=== PATIENT | female | born 1970 | race African-American/Black ===

== ENCOUNTER 2016-08-25 10:09 | Emergency (ER) | payer OTHER ==
--- NOTE | ~2016-08-25 | CR63 ---
[facility] A Service of [facility] & [facility] RADIOLOGY TEXT RESULTS PATIENT: ADRIANA GRAF LOCATION: [facility] : 72 UNIT #: [id number] AGE: [address]: Lindsay Hale SEX: F ORDER DR: [id number] [facility] [address] [place], [place] [address] [id number] E MR#: [id number] Acc #: [id number] NAME: ADRIANA GRAF : 1970 SEX: F STUDY DATE/TIME: 08/25/2016 10:34 UNIT: [facility] ROOM: STUDY DESCRIPTION: CR Chest 2 View Attending Physician: Lindsay Hale P.A.-C. Ordering Physician: Lindsay Hale P.A.-C. Primary Care Physician: [facility] MEDICAL IMAGING REPORT This report is preliminary unless electronic signature is present EXAM Two-view chest, 08/25/2016 INDICATIONS Cough, short of air, sore throat for 3 days, tobacco abuse for years. TECHNIQUE 2 views of the chest were performed and compared with 12/19/2015. FINDINGS Cardiac silhouette is borderline in size and stable. Vascularity unremarkable. There is no dense consolidation, effusion or pneumothorax. Lateral view degraded by body habitus but otherwise unremarkable. Minimal thoracic spondylosis. IMPRESSION 1. Borderline to mild cardiomegaly, otherwise negative two-view chest. Dictated by... Robin Ellis M.D. THIS IS AN ELECTRONICALLY VERIFIED REPORT Robin Ellis M.D. at 08/26/2016 7:28 AM TRAVIS/daniel TD: 08/25/2016 16:42 JOB #: [id number] MEDICAL IMAGING REPORT COPY
[~2016-08-25 10:09] MED LIST: FLEXERIL10 M1 PO; LORTAB 5/500 TA1 TA1 PO; MEDROL4 MG/DOSE- PO; NAPROXEN PO; ORUDIS75 M1 DOB; PREDNISONE PO; TYLENOL #3 PO; VOLTAREN75 MG PO
== END 2016-08-25 10:56 | disposition home or self-care (01) ==
LOC: CFTX 10:09
DX: J20.5 Acute bronchitis due to respiratory syncytial virus (principal); I10 Essential (primary) hypertension; F17.210 Nicotine dependence, cigarettes, uncomplicated; Z98.51 Tubal ligation status
CPT/HCPCS: 71020; 87651; 94640; 99283

== ENCOUNTER 2016-11-19 12:56 | Emergency (ER) | payer OTHER ==
--- NOTE | ~2016-11-19 | EKG ---
PATIENT: ADRIANA GRAF UNIT #: [id number] Ventricular Rate: 70 BPM Atrial Rate: 70 BPM P-R Interval: 172 ms QRS Duration: 104 ms Q-T Interval: 416 ms QTC Calculation(Bezet): 449 ms P [place]: 51 degrees Calculated R [place]: 9 degrees Calculated T [place]: 11 degrees Diagnosis Line: Normal sinus rhythm Diagnosis Line: Nonspecific ST and T wave abnormality Diagnosis Line: Abnormal ECG Diagnosis Line: Diagnosis Line: Confirmed by MOISÉS CHI MD ([id number]) on Diagnosis Line: 11/19/2016 10:21:56 PM INTERPRETING MD: QUIRINO
[2016-11-19 14:59] LABS: URINE SOURCE CLEAN CATCH
[2016-11-19 15:03] LABS: URINE APPEARANCE CLEAR; URINE BILIRUBIN NEG (NEG); URINE BLOOD TRACE (NEG); URINE COLOR YELLOW; URINE GLUCOSE NEG (NEG); URINE KETONE NEG (NEG); URINE LEUKOCYTE ESTERASE NEG (NEG); URINE NITRATE NEG (NEG); URINE PROTEIN NEG (NEG); URINE SPECIFIC GRAVITY 1.018 (1.003-1.035); URINE UROBILINOGEN 0.2 MG/DL (NEG)
[2016-11-19 15:05] LABS: URBCS1 AUWI 0-2 /[HPF] (0-2); URINE BACTERIA AUWI NEG (NEGATIVE); URINE SQUAMOUS EPITHELIAL CELL OCC /[HPF]; UWBCS1 AUWI 0-2 (0-5)
[2016-11-19 15:13] LABS: CULTURE INDICATED? NO
[2016-11-19 15:29] LABS: BASOPHIL# 0.1 X10e3 (0-0.3); BASOPHIL% 1.3 % (0-2.5); EOSINOPHIL# 0.3 X10e3 (0-0.7); EOSINOPHIL% 3.5 % (0.0-7.0); HEMATOCRIT 41.5 % (35.0-45.0); HEMOGLOBIN 13.1 gm/dL (12.0-16.0); LYMPHOCYTE# 2.3 X10e3 (1.0-3.5); LYMPHOCYTE% 28.7 % (17.0-45.0); MEAN CELL VOLUME 86.1 FL (83-96); MEAN CORPUSCULAR HEMOGLOBIN 27.2 PG (28-34); MEAN CORPUSCULAR HGB CONC 31.6 g/dL (30-36); MEAN PLATELET VOLUME 9.4 FL (6.5-11.5); MONOCYTE# 0.6 X10e3 (0-1.0); MONOCYTE% 7.3 % (3.0-12.0); NEUTROPHIL# 4.9 X10e3 (1.5-7.1); NEUTROPHIL% 59.2 % (40-75); PLATELET COUNT 271 X10e3 (140-420); RED BLOOD COUNT 4.82 X10e (3.90-5.30); RED CELL DISTRIBUTION WIDTH 14.6 % (11.0-15.5); WHITE BLOOD COUNT 8.2 X10e3 (4.0-10.5)
[2016-11-19 15:35] LABS: DIFF IND NO
[2016-11-19 15:59] LABS: ALBUMIN SERUM 4.3 g/dL (3.5-5.0); BILIRUBIN, DIRECT 0.1 mg/dL (0.0-0.2); BILIRUBIN,INDIRECT 0.6 mg/dL (0.0-0.9); BILIRUBIN,TOTAL 0.7 mg/dL (0.2-2.0); BUN/CREATININE RATIO 13.33; CALCIUM SERUM 10.7 mg/dL (8.4-10.2); CREATININE SERUM 0.9 mg/dL (0.6-1.4); GLOM FILT RATE Estimated 89.6 mL/min (>60); PROTEIN TOTAL SERUM 8.1 g/dL (6.0-8.3)
[2016-11-19 16:00] LABS: POTASSIUM 3.1 mmol/L (3.5-5.1)
== END 2016-11-19 17:04 | disposition home or self-care (01) ==
LOC: CED 12:56
PROVIDERS: Emergency Medicine
DX: E87.6 Hypokalemia (principal); R42 Dizziness and giddiness; I10 Essential (primary) hypertension; F17.200 Nicotine dependence, unspecified, uncomplicated; Z98.51 Tubal ligation status
CPT/HCPCS: 36415; 80048; 80076; 81003; 82947; 85025; 93005; 96361; 96374; 99284; J2405

== ENCOUNTER 2017-02-18 17:10 | Emergency (ER) | payer OTHER ==
[~2017-02-18] VITALS: Ht 162.6 cm; Wt 99.8 kg
--- NOTE | ~2017-02-18 | CR21 ---
[facility] A Service of [facility] & [facility] RADIOLOGY TEXT RESULTS PATIENT: ADRIANA GRAF LOCATION: [facility] : 72 UNIT #: [id number] AGE: [address]: Sunshine Solis SEX: F ORDER DR: [id number] [facility] [address] [place], [place] [address] [id number] E MR#: [id number] Acc #: [id number] NAME: ADRIANA GRAF : 1970 SEX: F STUDY DATE/TIME: 02/18/2017 18:01 UNIT: [facility] ROOM: STUDY DESCRIPTION: CR Ankle Min 3 Views Rt Attending Physician: Sunshine Solis Pa-C Ordering Physician: Ed Bravo Allred M.D. Primary Care Physician: No Primary Care Physician MEDICAL IMAGING REPORT This report is preliminary unless electronic signature is present EXAM Right ankle 3 views 02/18/2017 HISTORY Right ankle pain and edema for 5 days status post fall. FINDINGS AP, lateral, and oblique projections of the ankle show satisfactory integrity of the joint mortise with a smooth articular surface. There is no identifiable fracture, dislocation, or radiopaque foreign body. IMPRESSION Normal ankle. Dictated by... Corbin Paul M.D. THIS IS AN ELECTRONICALLY VERIFIED REPORT Corbin Paul M.D. at 02/21/2017 7:46 AM KRT/renée TD: 02/19/2017 07:59 JOB #: [id number] MEDICAL IMAGING REPORT Page 1 of 1 COPY
[2017-02-18 18:05] LABS: URINE SOURCE CLEAN CATCH
[2017-02-18 18:26] LABS: URINE APPEARANCE CLEAR; URINE BILIRUBIN NEG (NEG); URINE BLOOD NEG (NEG); URINE COLOR YELLOW; URINE GLUCOSE NEG (NEG); URINE KETONE NEG (NEG); URINE LEUKOCYTE ESTERASE NEG (NEG); URINE NITRATE NEG (NEG); URINE PH 6.5 (5-8); URINE PROTEIN NEG (NEG); URINE SPECIFIC GRAVITY 1.019 (1.003-1.035)
[2017-02-18 18:34] LABS: CULTURE INDICATED? NO
== END 2017-02-18 19:00 | disposition home or self-care (01) ==
LOC: CFTX 17:10 → CED 17:10 → CFTX 17:37
PROVIDERS: Physician Assistant
DX: S93.401A Sprain of unspecified ligament of right ankle, initial encounter (principal); S39.012A Strain of muscle, fascia and tendon of lower back, initial encounter; I10 Essential (primary) hypertension; F17.200 Nicotine dependence, unspecified, uncomplicated
CPT/HCPCS: 29540; 73610; 81003; 99283